=== PATIENT | male | born 1940 | race Two or more races ===

== ENCOUNTER 2022-07-18 06:17 | Inpatient (IN) | payer OTHER ==
[~2022-07-18] VITALS: Ht 152.4 cm; Wt 95.3 kg
[2022-07-18] MEDS ORDERED: ATORVASTATIN CA10 MG PO (06:42)
[2022-07-18] MEDS ORDERED: XARELTO20 MG (06:42)
[2022-07-18] MEDS ORDERED: PANTOPRAZOLE SO40 MG PO (06:42)
[2022-07-18] MEDS ORDERED: CANDESARTAN CILE4 MG PO (06:44)
[2022-07-18] MEDS ORDERED: FISH OIL 1,0001 EAC1 (06:45)
[2022-07-18] MEDS ORDERED: QUETIAPINE FUM400 M1 (06:46)
[2022-07-18] MEDS ORDERED: BUSPIRONE HCL7.5 MG (06:47)
[2022-07-18] MEDS ORDERED: ESCITALOPRA5 MG/5 ML (06:47)
== END 2022-08-07 13:45 | disposition designated cancer center or children's hospital (05) | DRG 291 ==
LOC: ER 06:17 → ICU 15:28 → SURH 07-28 13:35
PROVIDERS: ADMIT Internal Medicine; ATTEND Internal Medicine
PROC: 5A09457 Assistance with Respiratory Ventilation, 24-96 Consecutive Hours, Continuous Positive Airway Pressure (ICD-10-PCS; principal; 2022-07-18)
PROC: B24BYZZ Ultrasonography of Heart with Aorta using Other Contrast (ICD-10-PCS; 2022-07-18)
PROC: 02HV33Z Insertion of Infusion Device into Superior Vena Cava, Percutaneous Approach (ICD-10-PCS; 2022-07-19)
PROC: 5A0945A Assistance with Respiratory Ventilation, 24-96 Consecutive Hours, High Flow/Velocity Cannula (ICD-10-PCS; 2022-07-23)
PROC: 4A12X4Z Monitoring of Cardiac Electrical Activity, External Approach (ICD-10-PCS; 2022-07-28)
PROC: B020ZZZ Computerized Tomography (CT Scan) of Brain (ICD-10-PCS; 2022-07-31)
PROC: 0HD1XZZ Extraction of Face Skin, External Approach (ICD-10-PCS; 2022-08-03)
DX: I11.0 Hypertensive heart disease with heart failure (principal); A41.9 Sepsis, unspecified organism; L89.813 Pressure ulcer of head, stage 3; I50.33 Acute on chronic diastolic (congestive) heart failure; J96.01 Acute respiratory failure with hypoxia; R65.21 Severe sepsis with septic shock; R57.0 Cardiogenic shock; J69.0 Pneumonitis due to inhalation of food and vomit; Z68.41 Body mass index [BMI] 40.0-44.9, adult; I48.20 Chronic atrial fibrillation, unspecified; E87.0 Hyperosmolality and hypernatremia; E87.6 Hypokalemia; E66.09 Other obesity due to excess calories; J44.9 Chronic obstructive pulmonary disease, unspecified; E78.5 Hyperlipidemia, unspecified; Z66 Do not resuscitate; Z79.01 Long term (current) use of anticoagulants; Z95.810 Presence of automatic (implantable) cardiac defibrillator